=== PATIENT | female | born 1995 | race African-American/Black ===

== ENCOUNTER 2024-12-18 12:53 | Emergency (ER) | payer OTHER ==
[~2024-12-18] VITALS: Ht 149.9 cm; Wt 68.2 kg
[2024-12-18 13:23] VITALS: BP 142/90; PULSE 80; RESP 16; TEMP 98.1; O2SAT 99
[2024-12-18] MEDS: ACETAMINOPHEN 500 MG TABLET PO ONE (14:56)
[2024-12-18] MEDS ORDERED: ACET-3385 PO (15:03)
[2024-12-18] MEDS ORDERED: IBUP-1492 PO (15:03)
== END 2024-12-18 15:15 | disposition home or self-care (01) ==
LOC: EMS 12:56
DX: S66.110A Strain of flexor muscle, fascia and tendon of right index finger at wrist and hand level, initial encounter (principal); X58.XXXA Exposure to other specified factors, initial encounter; Y93.89 Activity, other specified; Y92.89 Other specified places as the place of occurrence of the external cause; Y99.8 Other external cause status
CPT/HCPCS: 99283